=== PATIENT | male | born 1965 | race Caucasian/White ===

== ENCOUNTER 2017-01-14 20:25 | Emergency (ER) | payer SELFPAY ==
[~2017-01-14] VITALS: Ht 172.7 cm; Wt 72.6 kg
[2017-01-14 20:32] VITALS: BP 123/79
== END 2017-01-14 20:38 | disposition left against medical advice (07) ==
LOC: ER 20:32
DX: R07.9 Chest pain, unspecified (principal); Z53.21 Procedure and treatment not carried out due to patient leaving prior to being seen by health care provider